=== PATIENT | male | born 1990 | race Caucasian/White ===

== ENCOUNTER 2019-04-10 04:45 | Emergency (ER) | payer MEDICAID ==
[~2019-04-10] VITALS: Ht 165.1 cm; Wt 86.0 kg
[2019-04-10] MEDS ORDERED: ACETAMINOPHEN WITH CODEINE 300/30MG TABLET PO ONE (06:30)
[2019-04-10 06:34] VITALS: BP 118/80
== END 2019-04-10 07:59 | disposition home or self-care (01) ==
LOC: ER 04:45
DX: S83.8X2A Sprain of other specified parts of left knee, initial encounter (principal); Y93.51 Activity, roller skating (inline) and skateboarding; Y92.89 Other specified places as the place of occurrence of the external cause; R03.0 Elevated blood-pressure reading, without diagnosis of hypertension
CPT/HCPCS: 29505; 73560; 99283; L1830